=== PATIENT | male | born 1995 | race Two or more races ===

== ENCOUNTER 2017-02-18 16:39 | Emergency (ER) | payer SELFPAY ==
[~2017-02-18] VITALS: Ht 177.8 cm; Wt 99.8 kg
--- NOTE | 2017-02-18 16:55 | NUR ---
Presents self to ed due to abdominal pain, 07/07, burning, non radiating. Vomitted 6x today. Denies diarhea. afbrile. Pending md bennett
[2017-02-18] MEDS ORDERED: IV SET PRIMARY PUMP SET 1 EA INFUS.SET MC ONE (17:05)
[2017-02-18] MEDS ORDERED: IV NS 0.9% 1,000 ML ONE (17:05)
[2017-02-18] MEDS ORDERED: MAG HYDROX/AL HYDROX/SIMETH 30 ML UDC ONE (17:12)
[2017-02-18] MEDS ORDERED: LIDOCAINE VISCOUS 2% UD 15 ML UDC ONE (17:12)
[2017-02-18] MEDS ORDERED: ONDANSETRON HCL/PF 4 MG/2 ML VIAL ONE (17:13)
[2017-02-18] MEDS ORDERED: FAMOTIDINE/PF INJ 20 MG/2 ML VIAL IV ONE (17:13)
[2017-02-18 17:20] LABS: BASOPHILS # (AUTO) 0.2 /CMM (0.0-0.2); BASOPHILS % (AUTO) 1.5 % (0.0-2.0); EOSINOPHILS # (AUTO) 0.1 /CMM (0.0-0.7); EOSINOPHILS % (AUTO) 0.6 % (0.0-6.0); HEMATOCRIT 45 % (39-51); HEMOGLOBIN 15.7 g/dL (13.5-17.5); LYMPHOCYTES # (AUTO) 0.4 /CMM (0.8-4.8); LYMPHOCYTES % (AUTO) 3.5 % (20.0-44.0); MEAN CORPUSCULAR HEMOGLOBIN 31 PG (26.0-33.0); MEAN CORPUSCULAR HGB CONC 35 g/dl (31.0-36.0); MEAN CORPUSCULAR VOLUME 90 fL (80-96); MONOCYTES # (AUTO) 0.1 /CMM (0.1-1.30); MONOCYTES % (AUTO) 0.7 % (2.0-12.0); NEUTROPHILS # (AUTO) 11.9 /CMM (1.8-8.9); NEUTROPHILS % (AUTO) 93.7 % (43.0-81.0); PLATELET COUNT (AUTO) 197 /CMM (150-450); RDW COEFFICIENT OF VARIATION 11.9 (11.5-15.0); RED BLOOD CELL COUNT(AUTO) 5.07 MIL/uL (4.5-6.0); WHITE BLOOD COUNT (AUTO) 12.7 K/uL (4.3-11.0)
[2017-02-18] MEDS: LIDOCAINE VISCOUS 2% UD 15 ML UDC MM ONE (17:20)
[2017-02-18] MEDS: IV NS 0.9% 1,000 ML BAG IV ONE (17:20)
[2017-02-18] MEDS: ONDANSETRON HCL/PF 4 MG/2 ML VIAL IVP ONE (17:20)
[2017-02-18] MEDS: MAG HYDROX/AL HYDROX/SIMETH 30 ML UDC PO ONE (17:20)
[2017-02-18] MEDS: FAMOTIDINE/PF INJ 20 MG/2 ML VIAL IV ONE (17:20)
--- NOTE | 2017-02-18 17:20 | NUR ---
due meds given as ordered
[2017-02-18 17:26] LABS: CALCIUM, SERUM 9.9 mg/dL (8.5-10.1); POTASSIUM 3.9 mmol/L (3.5-5.1)
[2017-02-18 17:35] LABS: ALBUMIN 4.8 g/dL (3.4-5.0); BILIRUBIN,DIRECT 0.2 mg/dL (0.0-0.2); BILIRUBIN,TOTAL 0.9 mg/dL (0.2-1.0); TOTAL PROTEIN, SERUM 8.4 g/dL (6.4-8.2)
[2017-02-18 19:10] VITALS: BP 151/83
--- NOTE | 2017-02-18 19:11 | NUR ---
IV removed. Catheter intact and site benign. Pressure and 4x4 applied to site. No bleeding noted.Patient discharged to home in stable condition. Written and verbal after care instructions given. Patient verbalizes understanding of instruction.
== END 2017-02-18 19:11 | disposition home or self-care (01) ==
LOC: ER 16:42
DX: K29.70 Gastritis, unspecified, without bleeding (principal); J45.909 Unspecified asthma, uncomplicated
CPT/HCPCS: 36415; 71010; 80048; 80076; 83690; 85025; 96361; 96374; 96375; 99285; A4606; J2405; J3490; J7030; Z7610

== ENCOUNTER 2017-11-12 21:50 | Emergency (ER) | payer SELFPAY ==
[~2017-11-12] VITALS: Ht 180.3 cm; Wt 99.8 kg
--- NOTE | 2017-11-12 22:12 | NUR ---
BIBSELF C/O MID ABD PAIN SINCE 4PM + N/V. HX GASTRITIS. PT AOX3 RR EVEN AND UNLABORED. NO SOB NOTED. NAD NOTED. NO NVD A THIS TIME. PT GOWNED AND PLACED ON MONITOR WAITING FOR MD GUTIERREZ. URINE COLLECTED.
--- NOTE | 2017-11-12 22:18 | NUR ---
DR. PRAKASH AT BEDSIDE FOR EVAL.
[2017-11-12] MEDS ORDERED: ONDANSETRON HCL/PF 4 MG/2 ML VIAL ONE (22:23)
[2017-11-12] MEDS ORDERED: KETOROLAC TROMETHAMINE INJ 30 MG/ML VIAL ONE (22:23)
[2017-11-12] MEDS ORDERED: FAMOTIDINE/PF INJ 20 MG/2 ML VIAL IV ONE ×2 (22:24→22:30)
[2017-11-12] MEDS ORDERED: ONDANSETRON HCL/PF 4 MG/2 ML VIAL IVP ONE (22:30)
[2017-11-12] MEDS ORDERED: LIDOCAINE VISCOUS 2% UD 15 ML UDC MM ONE (22:30)
[2017-11-12] MEDS ORDERED: KETOROLAC TROMETHAMINE INJ 30 MG/ML VIAL IV ONE (22:30)
[2017-11-12] MEDS ORDERED: MAG HYDROX/AL HYDROX/SIMETH 30 ML UDC PO ONE (22:30)
[2017-11-12] MEDS ORDERED: IV NS 0.9% 1,000 ML BAG IV ONE (22:30)
[2017-11-12 22:32] LABS: EOSINOPHILS % (AUTO) 0.2 % (0.0-6.0); HEMATOCRIT 46 % (39-51); HEMOGLOBIN 15.7 g/dL (13.5-17.5); LYMPHOCYTES # (AUTO) 0.4 /CMM (0.8-4.8); LYMPHOCYTES % (AUTO) 2.8 % (20.0-44.0); MEAN CORPUSCULAR HEMOGLOBIN 31 PG (26.0-33.0); MEAN CORPUSCULAR HGB CONC 34 g/dl (31.0-36.0); MEAN CORPUSCULAR VOLUME 90 fL (80-96); MONOCYTES # (AUTO) 0.1 /CMM (0.1-1.30); MONOCYTES % (AUTO) 1.1 % (2.0-12.0); NEUTROPHILS % (AUTO) 95.9 % (43.0-81.0); PLATELET COUNT (AUTO) 199 /CMM (150-450); RDW COEFFICIENT OF VARIATION 12.5 (11.5-15.0); RED BLOOD CELL COUNT(AUTO) 5.11 MIL/uL (4.5-6.0); WHITE BLOOD COUNT (AUTO) 13.6 K/uL (4.3-11.0)
[2017-11-12] MEDS ORDERED: LIDOCAINE VISCOUS 2% UD 15 ML UDC ONE (22:35)
[2017-11-12] MEDS ORDERED: MAG HYDROX/AL HYDROX/SIMETH 30 ML UDC ONE (22:35)
[2017-11-12 22:42] LABS: CALCIUM, SERUM 9.9 mg/dL (8.5-10.1); CREATININE 1.2 mg/dL (0.6-1.3); POTASSIUM 3.5 mmol/L (3.5-5.1)
[2017-11-12 22:53] LABS: ALBUMIN 4.8 g/dL (3.4-5.0); BILIRUBIN,DIRECT 0.2 mg/dL (0.0-0.2); TOTAL PROTEIN, SERUM 8.7 g/dL (6.4-8.2)
--- NOTE | 2017-11-12 22:58 | NUR ---
DR. PRAKASH AT BEDSIDE SPEAKING TO PT REGARDING RESULTS.
[2017-11-12] MEDS ORDERED: MORPHINE SULFATE INJ 4 MG/ML DISP.SYRIN ONE (22:59)
--- NOTE | 2017-11-12 23:08 | NUR ---
VERBAL ORDERS PER DR. PRAKASH TO GIVE IVP MORPHINE 4 MG ONE TIME NOW. PT MEDICATED.
--- NOTE | 2017-11-12 23:16 | NUR ---
IV removed. Catheter intact and site benign. Pressure and 4x4 applied to site. No bleeding noted. Patient discharged to home in stable condition. Written and verbal after care instructions given. Patient verbalizes understanding of instruction. ambulatory with a steady gait. instructed not to drive. pt verbalize understanding. pt accompanied by family
[2017-11-12 23:17] VITALS: BP 140/86
[2017-11-12] MEDS ORDERED: MORPHINE SULFATE INJ 2 MG/ML DISP.SYRIN IV ONE (23:30)
== END 2017-11-12 23:18 | disposition home or self-care (01) ==
LOC: ER 21:52
DX: K29.00 Acute gastritis without bleeding (principal); F17.200 Nicotine dependence, unspecified, uncomplicated
CPT/HCPCS: 36415; 80048; 80076; 83690; 85025; 96361; 96374; 96375; 99284; A4606; J1885; J2270; J2405; J3490; J7030; Z7610

== ENCOUNTER 2018-01-02 19:22 | Emergency (ER) | payer BC ==
[~2018-01-02] VITALS: Ht 180.3 cm; Wt 104.3 kg
[2018-01-02 20:47] VITALS: BP 123/95
[2018-01-02] MEDS ORDERED: FAMOTIDINE (20 MG) 20 MG TABLET PO ONE (21:00)
[2018-01-02] MEDS ORDERED: ACETAMINOPHEN ES 500 MG TABLET PO ONE (21:00)
[2018-01-02] MEDS ORDERED: MAG HYDROX/AL HYDROX/SIMETH 30 ML UDC PO ONE (21:00)
[2018-01-02] MEDS ORDERED: ONDANSETRON 4 MG TAB.RAPDIS SL ONE (21:00)
[2018-01-02] MEDS ORDERED: MAG HYDROX/AL HYDROX/SIMETH 30 ML UDC ONE (21:11)
[2018-01-02] MEDS ORDERED: ACETAMINOPHEN ES 500 MG TABLET ONE (21:12)
[2018-01-02] MEDS ORDERED: FAMOTIDINE (20 MG) 20 MG TABLET ONE (21:12)
[2018-01-02] MEDS ORDERED: ONDANSETRON 4 MG TAB.RAPDIS ONE (21:12)
== END 2018-01-02 21:17 | disposition home or self-care (01) ==
LOC: ER 19:30
DX: K29.60 Other gastritis without bleeding (principal); F17.200 Nicotine dependence, unspecified, uncomplicated
CPT/HCPCS: A4606; Q0162; Z7610

== ENCOUNTER 2021-03-05 10:28 | Emergency (ER) | payer SELFPAY ==
[~2021-03-05] VITALS: Ht 180.3 cm; Wt 113.4 kg
[2021-03-05 11:29] LABS: MEAN CORPUSCULAR HGB CONC 34 g/dl (31.0-36.0); MONOCYTES # (AUTO) 0.5 /CMM (0.1-1.30); NEUTROPHILS # (AUTO) 3.5 /CMM (1.8-8.9)
[2021-03-05 11:32] LABS: BASOPHILS # (AUTO) 0.1 /CMM (0.0-0.2); BASOPHILS % (AUTO) 1.1 % (0.0-2.0); EOSINOPHILS % (AUTO) 1.3 % (0.0-6.0); HEMATOCRIT 46 % (39-51); HEMOGLOBIN 15.9 g/dL (13.5-17.5); LYMPHOCYTES # (AUTO) 1.2 /CMM (0.8-4.8); LYMPHOCYTES % (AUTO) 22.1 % (20.0-44.0); MEAN CORPUSCULAR VOLUME 101 fL (80-96); MONOCYTES % (AUTO) 8.7 % (2.0-12.0); NEUTROPHILS % (AUTO) 66.8 % (43.0-81.0); PLATELET COUNT (AUTO) 241 /CMM (150-450); WHITE BLOOD COUNT (AUTO) 5.3 K/uL (4.3-11.0)
[2021-03-05 11:37] LABS: CALCIUM, SERUM 9.7 mg/dL (8.5-10.1); CREATININE 1.1 mg/dL (0.6-1.3)
[2021-03-05 11:43] LABS: ALBUMIN 4.4 g/dL (3.4-5.0); BILIRUBIN,DIRECT 0.2 mg/dL (0.0-0.2); TOTAL PROTEIN, SERUM 7.9 g/dL (6.4-8.2)
--- NOTE | 2021-03-05 13:00 | NUR ---
Reclining in bed NO acute changes. Await MD update for possible admission
--- NOTE | 2021-03-05 14:30 | NUR ---
Dr Marin at bedside.
--- NOTE | 2021-03-05 15:47 | NUR ---
Pt fitted with neck brace as ordered. Refusing to stay/admission opting to go Against Medical Advise stating "I did NOT expect to stay here when I came [place] literally [place] so if it gets worse I can come back." AMA Form signed Copies ot test and images provided. Specific instructions given to come back if symptoms worsen Patient discharged to home in stable condition. Patient verbalizes understanding of instruction.
[2021-03-05] MEDS ORDERED: IBUP-1955 PO (15:49)
[2021-03-05] MEDS ORDERED: CYCL10TA9 PO (15:49)
[2021-03-05 15:51] VITALS: BP 137/80
== END 2021-03-05 15:52 | disposition left against medical advice (07) ==
LOC: ER 10:33
DX: S33.5XXA Sprain of ligaments of lumbar spine, initial encounter (principal); R53.1 Weakness; F17.200 Nicotine dependence, unspecified, uncomplicated; Z79.899 Other long term (current) drug therapy; V49.49XA Driver injured in collision with other motor vehicles in traffic accident, initial encounter; Y93.89 Activity, other specified; Y92.488 Other paved roadways as the place of occurrence of the external cause; Y99.8 Other external cause status
CPT/HCPCS: 36415; 70450; 72052; 72125; 72131; 80048; 80076; 82550; 85025; 85730; 99285; L0172

== ENCOUNTER 2021-03-07 14:33 | Emergency (ER) | payer SELFPAY ==
[~2021-03-07] VITALS: Ht 180.3 cm; Wt 122.5 kg
[~2021-03-07 14:33] MED LIST: CYCL10TA9 PO; IBUP-1955 PO
--- NOTE | 2021-03-07 14:33 | NUR ---
PT BIB SELF C/O NECK AND BACK PAIN FOR 2 DAYS. PT IS AAOX4, NOT IN RESPIRATORY DISTRESS, V/S STABLE, KEPT RESTED AND COMFORTABLE. WILL CONTINUE TO MONITOR.
--- NOTE | 2021-03-07 15:00 | NUR ---
IV LINE ESTABLISHED BLOOD DRAWN AND SENT TO LAB.
--- NOTE | 2021-03-07 15:15 | NUR ---
URINE SPECIMEN COLLECTED AND SENT TO LAB.
[2021-03-07 15:30] LABS: BASOPHILS % (AUTO) 0.3 % (0.0-2.0); EOSINOPHILS % (AUTO) 1.5 % (0.0-6.0); HEMATOCRIT 44 % (39-51); HEMOGLOBIN 14.6 g/dL (13.5-17.5); LYMPHOCYTES # (AUTO) 1.2 /CMM (0.8-4.8); LYMPHOCYTES % (AUTO) 20.6 % (20.0-44.0); MEAN CORPUSCULAR HGB CONC 34 g/dl (31.0-36.0); MEAN CORPUSCULAR VOLUME 100 fL (80-96); MONOCYTES # (AUTO) 0.4 /CMM (0.1-1.30); MONOCYTES % (AUTO) 6.1 % (2.0-12.0); NEUTROPHILS # (AUTO) 4.3 /CMM (1.8-8.9); NEUTROPHILS % (AUTO) 71.5 % (43.0-81.0); PLATELET COUNT (AUTO) 243 /CMM (150-450); RED BLOOD CELL COUNT(AUTO) 4.36 MIL/uL (4.5-6.0)
[2021-03-07 15:40] LABS: CALCIUM, SERUM 8.7 mg/dL (8.5-10.1); CARBON DIOXIDE 27 mmol/L (21-32); CHLORIDE 107 mmol/L (98-107); CREATININE 1.1 mg/dL (0.6-1.3); GLUCOSE 114 mg/dL (74-106); POTASSIUM 3.9 mmol/L (3.5-5.1); SODIUM SERUM 143 mmol/L (136-145); UREA NITROGEN, BLOOD 19 mg/dL (7-18)
[2021-03-07 15:46] LABS: ALANINE AMINOTRANSFERASE 75 U/L (12-78); ALBUMIN 3.9 g/dL (3.4-5.0); ALKALINE PHOSPHATASE 62 U/L (46-116); ASPARTATE AMINOTRANSFERASE 19 U/L (15-37); BILIRUBIN,DIRECT 0.1 mg/dL (0.0-0.2); BILIRUBIN,TOTAL 0.6 mg/dL (0.2-1.0); TOTAL PROTEIN, SERUM 7.4 g/dL (6.4-8.2)
[2021-03-07 15:48] LABS: BILIRUBIN,URINE NEGATIVE (NEGATIVE); COLOR,URINE YELLOW (YELLOW); LEUKOCYTE ESTERASE ,URINE NEGATIVE (NEGATIVE); NITRITE, URINE NEGATIVE (NEGATIVE); PH,URINE 5.5 (5.0-8.0); PROTEIN,URINE NEGATIVE (NEGATIVE); UGLUCOSE NEGATIVE (NEGATIVE); UROBILINOGEN,URINE 0.2 EU/dL (0.2)
--- NOTE | 2021-03-07 17:13 | NUR ---
Pt updated with plan of care. Informed that MRI is unavailable until Friday 03/09. P refusing to stay and is opting to leave AMA. Dr Andino notified- AMA Form signed.
[2021-03-07 17:16] VITALS: BP 130/70
== END 2021-03-07 17:17 | disposition home or self-care (01) ==
LOC: ER 14:36
DX: R53.1 Weakness (principal); F17.200 Nicotine dependence, unspecified, uncomplicated; E66.01 Morbid (severe) obesity due to excess calories; Z68.37 Body mass index [BMI] 37.0-37.9, adult; Z79.899 Other long term (current) drug therapy
CPT/HCPCS: 36415; 80048-TC; 80076-TC; 84484-TC; 85025-TC; 85652-TC; 85730-TC; 87081-TC